=== PATIENT | female | born 1960 | race Caucasian/White ===

== ENCOUNTER 2019-06-19 08:06 | Day surgery (SDC) | payer MEDICARE, MEDICAID ==
[2019-06-18 15:30] LABS: BASOPHILS # (AUTO) 0.1 X10'3 (0-0.2); BASOPHILS % (AUTO) 0.7 % (0-1); EOSINOPHILS # (AUTO) 0.2 X10'3 (0-0.9); EOSINOPHILS % (AUTO) 2.3 % (0-6); LYMPHOCYTES # (AUTO) 2.2 X10'3 (1.1-4.8); LYMPHOCYTES % (AUTO) 21.7 % (21-51); MEAN CORPUSCULAR HEMOGLOBIN 33.5 PG (27.0-31.0); MEAN CORPUSCULAR HGB CONC 33.9 g/dL (33.0-36.5); MEAN CORPUSCULAR VOLUME 98.9 FL (78-98); MEAN PLATELET VOLUME 10.2 FL (7.4-10.4); MONOCYTES # (AUTO) 0.5 X10'3 (0-0.9); NEUTROPHILS # (AUTO) 7.1 X10'3 (1.8-7.7); NEUTROPHILS % (AUTO) 70.3 % (42-75); PRE OP HEMATOCRIT 45.2 % (35.0-45.0); PRE OP HEMOGLOBIN 15.3 g/dL (12.0-16.0); PRE OP PLATELET COUNT 214 X10'3 (140-440); RED BLOOD COUNT 4.57 X10'6 (4.20-5.60); RED CELL DISTRIBUTION WIDTH 13.7 % (11.5-14.5)
[2019-06-18 15:34] LABS: CLARITY,URINE SLIGHTLY CLOUDY (Clear); COLOR,URINE YELLOW (Yellow); GLUCOSE, URINE NEGATIVE (Neg); KETONES,URINE NEGATIVE (Neg); LEUKOCYTE ESTERASE ,URINE NEGATIVE (Neg); NITRITES, URINE NEGATIVE (Neg); OCCULT BLOOD,URINE NEGATIVE (Neg); PH,URINE 5.5 (4.8-8.0); PROTEIN,URINE NEGATIVE (Neg); UROBILINOGEN,URINE 0.2 E.U/dL (0.2-1.0)
[2019-06-18 16:04] LABS: ALBUMIN 3.3 G/DL (3.4-5.0); ALBUMIN/GLOBULIN RATIO 0.6 (1.1-1.5); ALKALINE PHOSPHATASE 105 IU/L (46-116); BLOOD UREA NITROGEN 11 MG/DL (7-18); BUN/CREATININE RATIO 14.5 (6.6-38.0); CALCIUM 8.8 MG/DL (8.5-10.1); CHLORIDE 100 MMOL/L (99-107); CREATININE 0.76 MG/DL (0.40-0.90); PRE OP ALT 69 U/L (30-65); PRE OP ANION GAP 8 (8-16); PRE OP AST 107 U/L (10-37); PRE OP BILIRUB, TOTAL 0.4 MG/DL (0.0-1.0); PRE OP GLUCOSE 144 MG/DL (70-104); PRE OP POTASSIUM 3.4 MMOL/L (3.4-5.1); PRE OP SODIUM 138 MMOL/L (135-145); TOTAL CARBON DIOXIDE 29.7 MMOL/L (24-32); TOTAL PROTEIN 8.4 G/DL (6.4-8.2); eGFR 78 ML/MIN
[2019-06-18 16:16] LABS: UA COLLECTION TYPE CLN CATCH MIDSTREAM
[2019-06-18 16:18] LABS: BACTERIA,URINE 2+ /HPF (Neg); RBC,URINE 0-2 /HPF (0-2); WBC,URINE 0-4 /HPF (0-4)
[2019-06-18 16:19] LABS: MUCUS STRANDS MANY /LPF (Neg); SQUAMOUS EPITHELIAL CELL,UR MANY /LPF (FEW)
[~2019-06-19] VITALS: Ht 154.9 cm; Wt 92.4 kg
[~2019-06-19 08:06] MED LIST: LEVO25TA7 PO; LISI10TA4 PO; SIMV-42 PO; cefazolin/dext.iso 2gm/100ml 100 ML IV ONE; famotidine 20mg tablet PO ONE; ringers solution, lacted 1,000 ML IV SCH
[2019-06-19 08:10] VITALS: BP 141/87
[2019-06-19] MEDS ORDERED: LIDOcaine 1% W/epiNEPHrine 1:200,000 10ml vial ONE (11:25)
[2019-06-19] MEDS ORDERED: BUPIVAcaine/PF 2.5mg/ml (0.25%) 10ml vial ONE (11:25)
[2019-06-19] MEDS ORDERED: sevoflurane 250ml liquid IH ONE (12:21)
[2019-06-19] MEDS ORDERED: midazolam 2 mg/2 ml injection ONE (12:29)
[2019-06-19] MEDS ORDERED: fentaNYL/PF 50MCG/1 ML 2ML syringe ONE (12:29)
[2019-06-19] MEDS ORDERED: BUPIVAcaine/PF 2.5 mg/ml (0.25%) 30ml vial ONE (13:06)
[2019-06-19] MEDS ORDERED: propofol inj 20 ML IV ONE ×2 (13:21)
[2019-06-19 13:23] VITALS: BP 169/100
--- NOTE | 2019-06-19 13:23 | NUR ---
Received from OR via [facility] , accompanied by Anesthesiologist JOSE and report given by Anesthesiolgist. PATIENT WITH 20G PIV IN LEFT UE RUNNING LR AT 1O0. DRESSING TO BACK OF NECK IN IS CDI. Addendum: 06/19/19 at 1332 by Jared Evans RN, RN Amended: Links added.
[2019-06-19 13:33] VITALS: BP 125/78
[2019-06-19 13:43] VITALS: BP 119/68
[2019-06-19 13:53] VITALS: BP 116/73
[2019-06-19 14:03] VITALS: BP 148/67
--- NOTE | 2019-06-19 14:13 | NUR ---
ALL DC CRITERIA HAS BEEN MET. IV TAKEN OUT WITHOUT COMPLICATIONS. ALL INSTRUCTIONS COVERED AND ALL QUESTIONS ANSWERED. DRESSINGS CDI. OUT VIA WHEELCHAIR TO PERSONAL VEHICLE WHERE PATIENT WAS SECURED IN AND DRIVEN HOME BY FAMILY. Addendum: 06/19/19 at 1440 by Jared Evans RN, RN Amended: Links added.
== END 2019-06-19 14:13 | disposition home or self-care (01) ==
LOC: PAS 08:06
PROVIDERS: ATTEND Surgery
DX: R22.2 Localized swelling, mass and lump, trunk (principal); D17.1 Benign lipomatous neoplasm of skin and subcutaneous tissue of trunk; I10 Essential (primary) hypertension; E03.9 Hypothyroidism, unspecified; F32.9 Major depressive disorder, single episode, unspecified; F41.9 Anxiety disorder, unspecified; F17.210 Nicotine dependence, cigarettes, uncomplicated; Z79.899 Other long term (current) drug therapy; E66.01 Morbid (severe) obesity due to excess calories; Z68.39 Body mass index [BMI] 39.0-39.9, adult
CPT/HCPCS: 21931; 36415; 80053; 81001; 82948; 85025; 93005; J2250; J2704; J3010; J3490; J7120; 88304; A4618; A6449; A7000

== ENCOUNTER 2022-04-09 12:02 | Emergency (ER) | payer MEDICARE, MEDICAID ==
[~2022-04-09] VITALS: Ht 154.9 cm; Wt 86.4 kg
[~2022-04-09 12:02] MED LIST changes: +LISI10TA27 PO; -LISI10TA4 PO; -cefazolin/dext.iso 2gm/100ml 100 ML IV ONE; -famotidine 20mg tablet PO ONE; -ringers solution, lacted 1,000 ML IV SCH
[2022-04-09 13:18] LABS: BASOPHILS # (AUTO) 0.1 X10'3 (0-0.2); BASOPHILS % (AUTO) 1.3 % (0-1); EOSINOPHILS % (AUTO) 0.4 % (0-6); HEMATOCRIT 43.4 % (35.0-45.0); HEMOGLOBIN 15.3 g/dl (12.0-16.0); LYMPHOCYTES # (AUTO) 1.7 X10'3 (1.1-4.8); MEAN CORPUSCULAR HEMOGLOBIN 34.3 PG (27.0-31.0); MEAN CORPUSCULAR HGB CONC 35.1 g/dL (33.0-36.5); MEAN CORPUSCULAR VOLUME 97.5 FL (78-98); MEAN PLATELET VOLUME 8.2 FL (7.4-10.4); MONOCYTES # (AUTO) 0.5 X10'3 (0-0.9); MONOCYTES % (AUTO) 5.1 % (2-12); NEUTROPHILS # (AUTO) 8.1 X10'3 (1.8-7.7); NEUTROPHILS % (AUTO) 77.2 % (42-75); PLATELET COUNT 182 X10'3 (140-440); RED BLOOD COUNT 4.45 X10'6 (4.20-5.60); RED CELL DISTRIBUTION WIDTH 13.5 % (11.5-14.5); WHITE BLOOD COUNT 10.5 X10'3 (4.5-11.0)
[2022-04-09 13:31] LABS: ALANINE AMINOTRANSFERASE 38 U/L (12-78); ALBUMIN 3.7 G/DL (3.4-5.0); ALBUMIN/GLOBULIN RATIO 0.8 (1.1-1.5); ALKALINE PHOSPHATASE 81 IU/L (46-116); ANION GAP 7 (8-16); ASPARTATE AMINO TRANSFERASE 31 U/L (10-37); BILIRUBIN,TOTAL 0.4 MG/DL (0.1-1.0); BLOOD UREA NITROGEN 9 MG/DL (7-18); BUN/CREATININE RATIO 12.2 (6.6-38.0); CALCIUM 8.8 MG/DL (8.5-10.1); CHLORIDE 103 MMOL/L (99-107); CREATININE 0.74 MG/DL (0.40-0.90); GLUCOSE 138 MG/DL (70-104); LIPASE 59 U/L (73-393); POTASSIUM 4.4 MMOL/L (3.5-5.1); SODIUM 138 MMOL/L (135-145); TOTAL PROTEIN 8.4 G/DL (6.4-8.2); eGFR 80 ML/MIN
[2022-04-09 20:16] LABS: CLARITY,URINE SLIGHTLY CLOUDY (Clear); COLOR,URINE YELLOW (Yellow); GLUCOSE, URINE NEGATIVE (Neg); KETONES,URINE NEGATIVE (Neg); LEUKOCYTE ESTERASE ,URINE NEGATIVE (Neg); NITRITES, URINE NEGATIVE (Neg); OCCULT BLOOD,URINE LARGE (Neg); PH,URINE 5.5 (4.8-8.0); PROTEIN,URINE NEGATIVE (Neg); UROBILINOGEN,URINE 0.2 E.U/dL (0.2-1.0)
[2022-04-09 20:17] LABS: UA COLLECTION TYPE CLN CATCH MIDSTREAM
[2022-04-09] MEDS ORDERED: iohexol 300mg/ml 100ml inj. ONE (20:24)
[2022-04-09 20:34] LABS: HEMOGLOBIN 14.4 g/dl (12.0-16.0); MEAN CORPUSCULAR HGB CONC 34.2 g/dL (33.0-36.5); MEAN CORPUSCULAR VOLUME 96.3 FL (78-98); MEAN PLATELET VOLUME 8.6 FL (7.4-10.4); PLATELET COUNT 194 X10'3 (140-440); RED BLOOD COUNT 4.36 X10'6 (4.20-5.60); RED CELL DISTRIBUTION WIDTH 13.6 % (11.5-14.5); WHITE BLOOD COUNT 13.2 X10'3 (4.5-11.0)
[2022-04-09 20:38] LABS: WBC,URINE 0-4 /HPF (0-4)
[2022-04-09 20:39] LABS: BACTERIA,URINE 2+ /HPF (Neg); MUCUS STRANDS MODERATE /LPF (Neg); RBC,URINE 0-2 /HPF (0-2); SQUAMOUS EPITHELIAL CELL,UR MANY /LPF (FEW)
[2022-04-09] MEDS ORDERED: morphine 4 MG/ML inj SYRINge IV ONE (23:45)
[2022-04-09] MEDS ORDERED: ondansetron/PF 4mg/2ml inj IV ONE (23:45)
[2022-04-10 00:06] LABS: HEMATOCRIT 41.8 % (35.0-45.0); HEMOGLOBIN 14.5 g/dl (12.0-16.0); MEAN CORPUSCULAR HEMOGLOBIN 33.6 PG (27.0-31.0); MEAN CORPUSCULAR HGB CONC 34.7 g/dL (33.0-36.5); MEAN CORPUSCULAR VOLUME 96.7 FL (78-98); MEAN PLATELET VOLUME 8.6 FL (7.4-10.4); PLATELET COUNT 184 X10'3 (140-440); RED BLOOD COUNT 4.32 X10'6 (4.20-5.60); RED CELL DISTRIBUTION WIDTH 13.6 % (11.5-14.5); WHITE BLOOD COUNT 13.9 X10'3 (4.5-11.0)
[2022-04-10] MEDS ORDERED: CIPR-20 PO (00:40)
[2022-04-10] MEDS ORDERED: MORP15TA PO (00:40)
[2022-04-10] MEDS ORDERED: morphine 4 MG/ML inj SYRINge IV STA (02:09)
[2022-04-10] MEDS ORDERED: ciprofloxacin 250mg tablet PO STA (02:09)
[2022-04-10 02:35] VITALS: BP 144/87
--- NOTE | 2022-04-10 10:38 | NUR ---
Patient called stating that the [facility] would not [facility] her prescriptions because they did not have the ciprofloxacin. I called the pharmacy and they had stated that the cipro er had been discontinued and was no longer being made. I spoke with Dr. marr who gave me a verbal order for Ciprofloxacin 250 mg PO BID x7 days total 14 tablets 0 refills. Called patient back and was informed regarding change.
== END 2022-04-10 03:04 | disposition home or self-care (01) ==
LOC: ER 12:03
DX: K52.9 Noninfective gastroenteritis and colitis, unspecified (principal); K92.1 Melena; E11.9 Type 2 diabetes mellitus without complications; I10 Essential (primary) hypertension; F32.A Depression, unspecified; Z98.890 Other specified postprocedural states; Z90.49 Acquired absence of other specified parts of digestive tract; Z79.899 Other long term (current) drug therapy; Z79.1 Long term (current) use of non-steroidal anti-inflammatories (NSAID)
CPT/HCPCS: 36415; 74178; 80053; 81001; 83690; 85025; 85027; 96361; 96374; 96375; 99285; J2270; J2405; J3490; Q9967

== ENCOUNTER 2025-04-28 10:12 | Outpatient (CLI) | payer MEDICARE, MEDICAID ==
--- NOTE | 2025-04-29 08:19 | RADIOLOGY REPORT ---
Procedure: CT CHEST Reason for study/Clinical History: Smoking history COMPARISON: None TECHNIQUE: Multidetector CT of the chest was performed from the lung apices to the upper abdomen without the use of intravenous contract. Axial, coronal and sagittal multiplanar reformats were performed. Radiation Dose Information: CT Dose: CTDI volume is 3.7 mGy. Dose-length product is 118.3 mGy*cm The dose indicators for CT are the volume Computed Tomography (CT) Dose Index (CTDIvol) and the Dose Length Product (DLP), and are measured in units of mGy and mGy-cm, respectively. These indicators are not patient dose, but values generated from the CT scanner acquisition factors. The report includes radiation exposure data for exposures received during this examination. FINDINGS: Lower neck: Normal thyroid. Lungs: No focal consolidation. Linear subsegmental atelectasis or scarring in the anterior left lung base. Very subtle mild diffuse peripheral ground-glass attenuation in the right middle lobe may represent early mild changes of pulmonary fibrosis. No suspicious pulmonary nodules Heart/Vascular Structures: Cardiomegaly. Coronary artery calcifications. Vascular calcifications of the aorta. Lymph Nodes: No adenopathy Pleura: No pleural effusion or significant pneumothorax. Musculoskeletal: No acute osseous abnormality. Soft tissues: Normal. Upper abdomen: Hepatic cirrhosis IMPRESSION: No suspicious pulmonary nodule. LUNG RADS Category 1: Continue annual screening with [employer] GON[facility]
== END 2025-04-28 23:59 | disposition home or self-care (01) ==
LOC: RAD 10:12
PROVIDERS: ATTEND Nurse Practitioner
DX: Z12.2 Encounter for screening for malignant neoplasm of respiratory organs (principal); K74.60 Unspecified cirrhosis of liver; I25.10 Atherosclerotic heart disease of native coronary artery without angina pectoris; I51.7 Cardiomegaly; J84.10 Pulmonary fibrosis, unspecified; Z87.891 Personal history of nicotine dependence
CPT/HCPCS: 71271